=== PATIENT | male | born 1960 | race Caucasian/White ===

== ENCOUNTER 2022-10-13 14:00 | Outpatient (OUT) | payer BC, SELFPAY | END 2022-10-13 14:01 | disposition home or self-care (01) | LOC: PST 10-21 18:48 | PROVIDERS: Visit Provider Surgery | DX: Z01.818 Encounter for other preprocedural examination (principal); Z12.11 Encounter for screening for malignant neoplasm of colon ==

== ENCOUNTER 2022-10-20 07:30 | Day surgery (SDC) | payer BC, SELFPAY ==
[2022-10-20 07:46] VITALS: BP 140/87; PULSE 67; RESP 18; TEMP 35.9; O2SAT 98; BMI 31.8
--- NOTE | 2022-10-20 09:12 | P.GSPRC_ITS ---
Date of procedure: 10/20/22 Indications for Procedure: screening for cancer Pre-op diagnosis: screening for cancer Post-op diagnosis: other (normal colon) Procedure: Colonoscopy 62-year-old male presents for screening colonoscopy. Patient was taken to the endoscopy suite placed in the left lateral recumbent position and given IV sedation by the [employer] technician. Rectal digital exam was performed. Sphincter counts found be normal. Prostate was slightly enlarged with no nodules. The Olympus video colonoscope was advanced under direct visualization into the rectum, sigmoid, descending, transverse, ascending colon to the ileocecal valve where the appendiceal lumen was visualized. The scope was slowly withdrawn with air being desufflated. There were no polyps tumors or diverticuli noted.the scope was retroflexed on itself and was normal exam. I would recommend patient return in ten years for screening colonoscopy. He may follow-up when necessary. Findings: normal colon Anesthesia: MAC Surgeon: Diaz Gates Procedure Summary: C above Estimated blood loss (mL): 0 Complications: No Pathology: none sent Condition: stable Disposition: PACU
[2022-10-20 09:14] VITALS: BP 126/84; PULSE 68; RESP 14; TEMP 36.3; O2SAT 95
[2022-10-20 09:29] VITALS: BP 123/102; PULSE 69; RESP 14; O2SAT 96
[2022-10-20 09:44] VITALS: BP 124/83; PULSE 58; RESP 18; O2SAT 98
== END 2022-10-20 09:44 | disposition home or self-care (01) ==
PROVIDERS: Visit Provider Surgery
PROC: (CPT 45378; principal; 2022-10-20 09:00)
DX: Z12.11 Encounter for screening for malignant neoplasm of colon (principal); G21.9 Secondary parkinsonism, unspecified; Z87.891 Personal history of nicotine dependence
CPT/HCPCS: 45378; J2704